=== PATIENT | female | born 1975 | race Caucasian/White ===

== ENCOUNTER 2017-03-30 07:16 | Emergency (ER) | payer MEDICAID ==
[2017-03-30 07:38] VITALS: BMI 27.9
[2017-03-30 07:42] VITALS: O2SAT 99
--- NOTE | 2017-03-30 07:58 | C.PDOC ---
History Of Present Illness 41 y/o female presents to ED with complaints of sore throat, left side of throat pain and neck pain radiating to ear. Patient states she took temperature and had no fever but had chills. Patient reports taking Tylenol with no relief and denies cough, shortness of breath, chest pain, trouble swallowing, nausea, vomiting or any other complaints at this time. Time Seen by Provider: 03/30/17 07:42 Chief Complaint (Nursing): ENT Problem History Per: Patient History/Exam Limitations: None Onset/Duration Of Symptoms: Days (2) Current Symptoms Are (Timing): Still Present Past Medical History Reviewed: Historical Data, Nursing Documentation, Vital Signs Vital Signs: Last Vital Signs Temp 98.5 F 03/30/17 07:30 Pulse 62 03/30/17 07:30 Resp 20 03/30/17 07:30 BP 128/87 03/30/17 07:30 Pulse Ox 99 03/30/17 08:25 - Medical History PMH: No Chronic Diseases Surgical History: No Surg Hx Family History: States: No Known Family Hx - Social History Hx Tobacco Use: No Hx Alcohol Use: No Hx Substance Use: No - Immunization History Hx Tetanus Toxoid Vaccination: No Hx Influenza Vaccination: No Hx Pneumococcal Vaccination: No Review Of Systems Constitutional: Positive for: Chills. Negative for: Fever ENT: Positive for: Ear Pain, Throat Pain, Throat Swelling Cardiovascular: Negative for: Chest Pain, Palpitations Respiratory: Negative for: Cough, Shortness of Breath Gastrointestinal: Negative for: Nausea, Vomiting Musculoskeletal: Positive for: Neck Pain Skin: Negative for: Rash Neurological: Negative for: Headache Physical Exam - Physical Exam Appears: Well, Non-toxic, No Acute Distress Skin: Warm, Dry, No Rash Head: Atraumatic, Normacephalic Eye(s): bilateral: Normal Inspection Ear(s): Bilateral: Normal (no erythema) Nose: Normal Oral Mucosa: Moist Tongue: Normal Appearing, No Swelling Lips: Normal Appearing, No Swelling Throat: Erythema (Pharyngeal ), No Exudate, No Drooling, No Mass, Other (uvula is midline) Neck: Normal ROM, Supple Lymphatic: Adenopathy (mild anterior cervical swelling left side) Chest: Symmetrical Cardiovascular: Rhythm Regular, No Murmur Respiratory: Normal Breath Sounds, No Rales, No Rhonchi, No Wheezing Extremity: Bilateral: Atraumatic, Normal ROM Neurological/Psych: Oriented x3, Normal Speech Gait: Steady ED Course And Treatment O2 Sat by Pulse Oximetry: 99 (RA) Pulse Ox Interpretation: Normal Medical Decision Making Medical Decision Making: Impression: Throat pain Plan: * Strep Test Progress, Reassess and Dispo: Strep was negative. Patient remained well, without fever and in no acute distress. She is speaking clear sentences and tolerating secretions. She feels comfortable going home. Will discharge with RX. Advise follow up in the clinic. Disposition Counseled Patient/Family Regarding: Diagnosis, Need For Followup, Rx Given - Disposition Referrals: [facility] at [facility] [Outside] Disposition: HOME/ ROUTINE Disposition Time: 08:24 Condition: STABLE Additional Instructions: Strep test negativo Seguimiento con la clnica en 2-5 davis para la evaluacin adicional. [place] los medicamentos vilma se recetan para cualquier dolor en la garganta. Regrese al servicio de urgencias en cualquier momento si los sntomas persisten o empeoran. Usted puede llamar al servicio de conserjera para cualquier ayuda . Prescriptions: Benzocaine/Menthol [Cepacol Sore Throat] 1 stephanie MM Q2 #30 stephanie Instructions: Pharyngitis (ED) Print Language: THAI - POA Present On Arrival: None - Clinical Impression Clinical Impression: Pharyngitis - PA / DIRECTOR OF SALES / Resident Statement MD/DO has reviewed & agrees with the documentation as recorded. - Scribe Statement The provider has reviewed the documentation as recorded by the Scribrachelle Chow All medical record entries made by the Deviibrachelle were at my direction and personally dictated by me. I have reviewed the chart and agree that the record accurately reflects my personal performance of the history, physical exam, medical decision making, and the department course for this patient. I have also personally directed, reviewed, and agree with the discharge instructions and disposition.
[2017-03-30 08:36] VITALS: BP 114/79; PULSE 61; RESP 16; TEMP 97.9
== END 2017-03-30 08:39 | disposition home or self-care (01) ==
LOC: C.ER 07:16
DX: J02.9 Acute pharyngitis, unspecified (principal)